=== PATIENT | male | born 1965 | race Caucasian/White ===

== ENCOUNTER 2019-08-23 15:06 | Emergency (ER) | payer BC ==
[2019-08-23 15:24] VITALS: BP 129/72
--- NOTE | 2019-08-23 16:35 | UC ---
Respiratory Complaint HPI - HPI Summary HPI Summary: 53yo male presenting with nonproductive cough x3 weeks. Patient states he had flu B for the week prior to cough onset and that those symptoms resolved. Notes sob at times. Denies wheezing. Denies fever and chills. Denies n/v. States his throat is sore and dry from coughing. Taking nyquil for symptom relief but still coughing too much to get any sleep. Denies h/o asthma, COPD, and is a nonsmoker. - History of Current Complaint Chief Complaint: UCRespiratory Stated Complaint: COUGH, SORE THROAT Hx Obtained From: Patient Pain Intensity: 0 Pain Scale Used: 0-10 Numeric - Allergies/Home Medications Allergies/Adverse Reactions: Allergies Allergy/AdvReac Type Severity Reaction Status Date / Time No Known Allergies Allergy Verified 08/23/19 15:22 Home Medications: Home Medications Lansoprazole [Prevacid] 30 mg PO DAILY 07/26/19 [History Confirmed 08/23/19] Lisinopril [Zestril] 20 mg PO DAILY 07/26/19 [History Confirmed 08/23/19] Benzonatate CAP* [Tessalon 100 MG CAP*] 100 mg PO TID PRN #21 cap 08/23/19 [Rx] Dm/Acetaminophen/Doxylamine [Nighttime Cold and Flu Liquid] 1 dose PO ONCE 08/23 [History Confirmed 08/23/19] predniSONE 10 mg TAB [Deltasone 10 MG TAB*] 10 mg PO SEE INSTRUCTIONS #15 tab [Rx] PMH/Surg Hx/FS Hx/Imm Hx Cardiovascular History: Hypertension GI/ History: Gastroesophageal Reflux - Surgical History Surgical History: Yes Surgery Procedure, Year, and Place: hernia, right leg surgery for a vein - Family History Known Family History: Positive: Hypertension, Non-Contributory - Social History Alcohol Use: Daily Substance Use Type: None Smoking Status (MU): Never Smoked Tobacco Review of Systems All Other Systems Reviewed And Are Negative: Yes Constitutional: Positive: Negative ENT: Positive: Sore Throat Respiratory: Positive: Shortness Of Breath, Cough Cardiovascular: Positive: Negative Gastrointestinal: Positive: Negative Musculoskeletal: Positive: Negative Neurological/Mental Status: Positive: Negative Physical Exam - Summary Physical Exam Summary: Vital Signs Reviewed: Yes A+Ox3, no distress, well-appearing Eyes: Conjunctiva Clear ENT: Hearing grossly normal, TM x 2 clear, moist, uvula midline, no exudate, no erythema Neck: Positive: Supple Respiratory: Positive: No respiratory distress, No accessory muscle use + CTA throughout no w/r, coughing throughout exam Cardiovascular: RRR nl s1, s2 no m/r Musculoskeletal Exam: VILLAGOMEZ x 4 without difficulty Neurological: Positive: Alert Psychological: Positive: age appropriate behavior Skin: Positive: no rash, no ecchymosis Vital Signs: Initial Vital Signs Temp 98.7 F 08/23/19 15:20 Pulse 81 08/23/19 15:20 Resp 17 08/23/19 15:20 BP 129/72 08/23/19 15:20 Pulse Ox 97 08/23/19 15:20 Respiratory Course/Dx - Course Course Of Treatment: Discussed acute bronchitis with patient and educated on duration of illness. I prescribed tessalon perles for cough relief. Discussed treatment with prednisone to help relieve symptoms and further educated on side effects of the medication. Patient consented to treatment with prednisone so I sent prescription for that as well. Instructed continue with symptomatic treatment and follow up with pcp if symptoms persist or worsen. Patient voiced understanding and agreed with treatment plan. - Differential Dx/Diagnosis Provider Diagnosis: Acute bronchitis with bronchospasm Discharge ED - Sign-Out/Discharge Documenting (check all that apply): Patient Departure All imaging exams completed and their final reports reviewed: No Studies - Discharge Plan Condition: Stable Disposition: HOME Prescriptions: Benzonatate CAP* [Tessalon 100 MG CAP*] 100 mg PO TID PRN #21 cap PRN Reason: Cough predniSONE 10 mg TAB [Deltasone 10 MG TAB*] 10 mg PO SEE INSTRUCTIONS #15 tab Patient Education Materials: Acute Bronchitis (ED), Bronchospasm (ED) Referrals: Spencer Ray MD [Primary Care Provider] - If Needed Additional Instructions: Take prednisone as prescribed. Take tesslone perles as directed for cough relief. Maintain hydration. Follow up with your primary care provider if symptoms not improved in 7-10 days. Go to the emergency room with any new or worsening symptoms. - Billing Disposition and Condition Condition: STABLE Disposition: Home - Attestation Statements Provider Attestation: Per institutional requirements, I have reviewed the chart, however, I was not consulted specifically or made aware of this patient by the midlevel provider. I did not personally evaluate, interact with, or disposition this patient. EK
== END 2019-08-23 16:34 | disposition home or self-care (01) ==
LOC: UCCORT 15:06
DX: J20.9 Acute bronchitis, unspecified (principal); K21.9 Gastro-esophageal reflux disease without esophagitis; I10 Essential (primary) hypertension; Z79.899 Other long term (current) drug therapy
CPT/HCPCS: 99212; G0463